=== PATIENT | male | born 1950 | race African-American/Black ===

== ENCOUNTER 2017-07-27 07:51 | Emergency (ER) | payer MEDICARE, MEDICAID ==
[~2017-07-27] VITALS: Ht 167.6 cm; Wt 65.0 kg
[~2017-07-27 07:51] MED LIST: CLON0.3T PO; HYDR-519 PO
[2017-07-27] MEDS ORDERED: ASPI-1159 PO (08:01)
[2017-07-27] MEDS ORDERED: LISI-186 PO (08:02)
[2017-07-27] MEDS ORDERED: AMLODIPINE 10MG TABLET PO ONE (08:45)
[2017-07-27 12:18] VITALS: BP 162/96
== END 2017-07-27 12:22 | disposition home or self-care (01) ==
LOC: ER 08:03
DX: R04.0 Epistaxis (principal); I10 Essential (primary) hypertension; K21.9 Gastro-esophageal reflux disease without esophagitis; F32.9 Major depressive disorder, single episode, unspecified; I48.91 Unspecified atrial fibrillation; Z79.82 Long term (current) use of aspirin; Z95.0 Presence of cardiac pacemaker; Z87.440 Personal history of urinary (tract) infections
CPT/HCPCS: 99284

== ENCOUNTER 2018-05-04 22:14 | Emergency (ER) | payer MEDICARE, MEDICAID ==
[~2018-05-04] VITALS: Ht 172.7 cm; Wt 63.0 kg
[~2018-05-04 22:14] MED LIST changes: +ASPI-1159 PO; +LISI-186 PO
[2018-05-05 01:47] VITALS: BP 117/64
== END 2018-05-05 02:08 | disposition home or self-care (01) ==
LOC: ER 22:14
DX: Z48.00 Encounter for change or removal of nonsurgical wound dressing (principal)
CPT/HCPCS: 93005; 99283